=== PATIENT | female | born 1930 | race Caucasian/White ===

== ENCOUNTER → 2016-03-22 | Outpatient (CLI) | payer MEDICARE, BC ==
[~2016-03-22] MED LIST: ANUSOL-HC SUPPO25 MG RC; ASPIRIN 81M81 MG/TA2 PO; IMODIUM 2MG CAPS2 MG PO; INDERAL80 MG PO; LIPITOR20 MG PO; NORVASC 5MG5 MG/TAB PO
== END ==
LOC: MC.RAD 14:14
DX: Z12.31 Encounter for screening mammogram for malignant neoplasm of breast (principal); N64.89 Other specified disorders of breast

== ENCOUNTER → 2016-03-27 | Outpatient (CLI) | payer MEDICARE, BC | LOC: MC.RAD 13:06 | DX: Z12.31 Encounter for screening mammogram for malignant neoplasm of breast (principal) ==

== ENCOUNTER 2017-03-16 05:06 | Emergency (ER) | payer MEDICARE, BC ==
[~2017-03-16] VITALS: Ht 162.6 cm; Wt 61.4 kg
[2017-03-16 05:12] VITALS: TEMP 97.6
[2017-03-16 05:46] LABS: BASO # 0.1 (0.0-0.2); BASO % 0.3 % (0.0-2.0); EOS # 0.1 (0.0-0.7); EOS % 0.5 % (0-4.0); GRAN # 12.8 (1.4-6.5); GRAN % 79.8 % (42.2-75.2); HEMATOCRIT 47.6 % (37.0-47.0); HEMOGLOBIN 15.9 g/dl (12.5-16.0); LYMPH # 1.9 (1.2-3.4); LYMPH % 12.1 % (20.0-51.0); MEAN CELL VOLUME 92 fl (80.0-100.0); MEAN CORPUSCULAR HEMOGLOBIN 31 pg (27.0-31.0); MEAN CORPUSCULAR HGB CONC 33 g/dl (33.0-37.0); MEAN PLATELET VOLUME 10.5 fl (7.4-10.4); MONO # 1.1 (0.1-0.6); MONO % 6.9 % (1.7-9.3); PLATELET COUNT 224 K/mm3 (130-400); RED BLOOD COUNT 5.18 M/mm3 (4.10-5.30)
[2017-03-16 06:01] LABS: ALANINE AMINOTRANSFERASE 28 U/L (9-52); ALBUMIN 4.8 gm/dL (3.5-5.0); ALKALINE PHOSPHATASE 87 U/L (50-136); ANION GAP 13 mmol/L (7-16); AST,SGOT 32 U/L (15-37); BILIRUBIN,TOTAL 0.9 mg/dL (0.0-1.0); BLOOD UREA NITROGEN 27 mg/dL (7-17); CALCIUM 10.6 mg/dL (8.4-10.2); CARBON DIOXIDE 29 mmol/L (22-30); CHLORIDE 98 mmol/L (98-107); CREATININE, serum 1.27 mg/dL (0.52-1.25); GLUCOSE 165 mg/dL (74-106); LIPASE 121 U/L (23-300); POTASSIUM 4.6 mmol/L (3.4-5.0); SODIUM 140 mmol/L (137-145); TOTAL PROTEIN 7.9 gm/dL (6.4-8.2)
[2017-03-16 06:02] LABS: C-REACTIVE PROTEIN < 0.5 mg/dL (0.0-0.9)
[2017-03-16 07:12] LABS: COLLECTION METHOD CLEAN CATCH
[2017-03-16 07:25] LABS: MUCOUS Present /lpf; PH 5 (5-8); URINE APPEARANCE Cloudy; URINE BACTERIA Rare /hpf; URINE BILIRUBIN Positive (NEGATIVE); URINE BLOOD Negative (NEGATIVE); URINE COLOR Amber; URINE GLUCOSE Negative (NEGATIVE); URINE KETONE 1+ (NEGATIVE); URINE LEUKOCYTE ESTERASE 2+ (NEGATIVE); URINE NITRATE Negative (NEGATIVE); URINE PROTEIN(semi-quant) 2+ (NEGATIVE)
[2017-03-16] MEDS ORDERED: ZOFRAN ODT4 MG PO (07:25)
[2017-03-16] MEDS ORDERED: BACTRIM DS 8001 TAB PO (09:15)
[2017-03-16 09:45] VITALS: BP 134/68; PULSE 76
== END 2017-03-16 09:48 | disposition home or self-care (01) ==
LOC: COL.ER 05:06
PROVIDERS: Emergency Medicine
DX: K56.7 Ileus, unspecified (principal); I10 Essential (primary) hypertension; Z95.0 Presence of cardiac pacemaker; Z79.82 Long term (current) use of aspirin
CPT/HCPCS: J0696; J2405; J3010; J7030

== ENCOUNTER 2017-03-16 13:43 | Inpatient (IN) | payer MEDICARE, BC ==
[~2017-03-16] VITALS: Ht 162.6 cm; Wt 63.5 kg
[~2017-03-16 13:43] MED LIST changes: +BACTRIM DS 8001 TAB PO; +ZOFRAN ODT4 MG PO
[2017-03-16 17:04] VITALS: BP 120/46; PULSE 70; TEMP 98.9
[2017-03-16 19:53] VITALS: BP 124/44; PULSE 73; TEMP 99.7
[2017-03-16 23:23] VITALS: BP 118/44; PULSE 74; TEMP 98.3
[2017-03-17 03:18] VITALS: BP 126/53; PULSE 91; TEMP 99.3
[2017-03-17 06:44] LABS: HEMATOCRIT 41.4 % (37.0-47.0); MEAN CELL VOLUME 94 fl (80.0-100.0); MEAN CORPUSCULAR HEMOGLOBIN 31 pg (27.0-31.0); MEAN CORPUSCULAR HGB CONC 33 g/dl (33.0-37.0); PLATELET COUNT 165 K/mm3 (130-400); RED BLOOD COUNT 4.41 M/mm3 (4.10-5.30); REDCELL DISTRIBUTION WIDTH-CV 12.2 % (11.5-14.5)
[2017-03-17 06:53] LABS: CALCIUM 7.9 mg/dL (8.4-10.2); CREATININE, serum 0.87 mg/dL (0.52-1.25); POTASSIUM 3.9 mmol/L (3.4-5.0)
[2017-03-17 08:08] VITALS: BP 116/48; PULSE 66; TEMP 98.6
[2017-03-17 08:09] LABS: HEMOGLOBIN 13.6 g/dl (12.5-16.0)
[2017-03-17 08:47] LABS: BAND 50 % (0-10); LYMPHOCYTE 39 % (20.0-51.0); NEUTROPHILS 7 % (42.0-75.2); PLATELET ESTIMATE NORMAL (NORMAL)
[2017-03-17 08:48] LABS: OVALOCYTES 1+
[2017-03-17 11:30] VITALS: BP 129/54; PULSE 64; TEMP 98
[2017-03-17 15:46] VITALS: BP 139/54; PULSE 66; TEMP 98.4
[2017-03-17 19:56] VITALS: BP 142/61; PULSE 64; TEMP 98.6
[2017-03-18 00:10] VITALS: BP 118/51; PULSE 65; TEMP 98.7
[2017-03-18 04:11] VITALS: BP 112/48; PULSE 65; TEMP 98.5
[2017-03-18 06:41] LABS: BASO % 0.2 % (0.0-2.0); EOS # 0.3 (0.0-0.7); EOS % 3.8 % (0-4.0); GRAN % 49.1 % (42.2-75.2); HEMATOCRIT 37.7 % (37.0-47.0); HEMOGLOBIN 12.2 g/dl (12.5-16.0); LYMPH # 2.6 (1.2-3.4); MEAN CELL VOLUME 95 fl (80.0-100.0); MEAN CORPUSCULAR HEMOGLOBIN 31 pg (27.0-31.0); MEAN CORPUSCULAR HGB CONC 32 g/dl (33.0-37.0); MEAN PLATELET VOLUME 10.9 fl (7.4-10.4); MONO # 1.2 (0.1-0.6); MONO % 14.7 % (1.7-9.3); PLATELET COUNT 147 K/mm3 (130-400); RED BLOOD COUNT 3.98 M/mm3 (4.10-5.30); REDCELL DISTRIBUTION WIDTH-CV 12.2 % (11.5-14.5)
[2017-03-18 06:54] LABS: CREATININE, serum 0.88 mg/dL (0.52-1.25); POTASSIUM 3.7 mmol/L (3.4-5.0)
[2017-03-18 08:43] VITALS: BP 129/50; PULSE 66; TEMP 97.9
== END 2017-03-18 11:00 | disposition home or self-care (01) | DRG 392 ==
LOC: COL.ER 13:43 → MEDICAL 14:02
PROVIDERS: Family Medicine
DX: A08.4 Viral intestinal infection, unspecified (principal); N39.0 Urinary tract infection, site not specified; I10 Essential (primary) hypertension; E86.0 Dehydration; B96.1 Klebsiella pneumoniae [K. pneumoniae] as the cause of diseases classified elsewhere; R19.7 Diarrhea, unspecified; Z95.0 Presence of cardiac pacemaker
CPT/HCPCS: 99222-AI; 99232-AI; 99239; J0696; J2405; J2765; J3010; J7030